=== PATIENT | female | born 2000 | race Hispanic/Latino ===

== ENCOUNTER 2024-07-23 21:51 | Inpatient (IN) | payer OTHER, SELFPAY ==
[2024-07-23] MEDS ORDERED: PROPOFOL 20 ML ONE (22:40)
[2024-07-23] MEDS ORDERED: fentaNYL 50 mcg/mL 1 mL Vial ONE (22:42)
[2024-07-23] MEDS ORDERED: Ondansetron ODT 4 MG TAB PO PRN (22:43)
[2024-07-23] MEDS ORDERED: Ondansetron PF 4 MG/2 ML Vial IVP PRN (22:43)
[2024-07-23] MEDS ORDERED: Lidocaine 2% PF 5 ML VIAL ONE (22:52)
[2024-07-23] MEDS ORDERED: Rocuronium Bromide 10 MG/ML (10ML VIAL) ONE (22:52)
[2024-07-23] MEDS ORDERED: Misoprostol 200 MCG TAB ONE (22:52)
[2024-07-23] MEDS ORDERED: Midazolam HCl 2 mg/2 ml Vial ONE (23:18)
[2024-07-23] MEDS ORDERED: Ketorolac Tromethamine 30 MG (1 mL) VIAL ONE (23:43)
[2024-07-23] MEDS ORDERED: Ondansetron PF 4 MG/2 ML Vial ONE (23:43)
[2024-07-23] MEDS ORDERED: Lidocaine 1% PF 5 ML VIAL ONE (23:43)
[2024-07-23] MEDS ORDERED: Dexamethasone 20 MG/5 ML VIAL ONE (23:43)
[2024-07-23] MEDS ORDERED: SUGAMMADEX SODIUM 200 MG/2 ML VIAL ONE (23:45)
[2024-07-24 01:39] VITALS: BMI 24.5
[2024-07-24] MEDS: Piperacillin/Tazobactam 3.375 GM in Sodium Chloride 0.9% 100 ML IVPB SCH ×2 (03:20→08:27)
[2024-07-24 04:17] LABS: #Basophils 0.01 10x3/uL (0.0-0.2); #Monocytes 0.19 10x3/uL (0.0-1.1); #Neutrophils 5.54 10x3/uL (1.5-8.4); %Basophils 0.2 % (0.0-2.0); %Lymphocytes 9.3 % (18.0-47.0); %Neutrophils 87.2 % (40.0-75.0); Hematocrit 33.3 % (34.9-44.5); Hemoglobin 10.9 g/dL (12.0-15.5); Mean Corpuscular HGB CONC 32.7 g/dL (32.0-36.0); Mean Corpuscular Hemoglobin 28.2 pg (27.0-33.0); Mean Corpuscular Volume 86.3 fL (81.6-98.3); Mean Platelet Volume 9.7 fL (7.4-10.4); Platelet Count 146 10x3/uL (150-450); RBC Distribution Width 12.6 % (11.5-14.5); Red Blood Cell (RBC) Count 3.86 10x6/uL (3.90-5.03); White Blood Cell (WBC) Count 6.4 10x3/uL (3.5-10.5)
[2024-07-24 04:22] LABS: INR-International Normal Ratio 1.2; PTT 29.1 sec (22.0-33.0); Prothrombin Time 12.5 sec (9.5-12.1)
[2024-07-24 08:04] LABS: #Basophils 0.01 10x3/uL (0.0-0.2); #Monocytes 0.12 10x3/uL (0.0-1.1); #Neutrophils 4.82 10x3/uL (1.5-8.4); %Basophils 0.2 % (0.0-2.0); %Lymphocytes 12.5 % (18.0-47.0); %Monocytes 2.1 % (0.0-10.0); %Neutrophils 84.7 % (40.0-75.0); Hematocrit 32.1 % (34.9-44.5); Hemoglobin 10.9 g/dL (12.0-15.5); Mean Corpuscular Hemoglobin 28.9 pg (27.0-33.0); Mean Corpuscular Volume 85.1 fL (81.6-98.3); Mean Platelet Volume 9.7 fL (7.4-10.4); Platelet Count 164 10x3/uL (150-450); RBC Distribution Width 12.7 % (11.5-14.5); Red Blood Cell (RBC) Count 3.77 10x6/uL (3.90-5.03); White Blood Cell (WBC) Count 5.7 10x3/uL (3.5-10.5)
[2024-07-24 08:23] LABS: D-Dimer Test 1.35 mcg/mL (0.19-0.50); INR-International Normal Ratio 1.2; PTT 29.2 sec (22.0-33.0); Prothrombin Time 12.6 sec (9.5-12.1)
[2024-07-24] MEDS: Ibuprofen 200 MG TAB PO SCH (08:27)
[2024-07-24] MEDS: metroNIDAZOLE 500 MG TAB PO SCH (08:35)
[2024-07-24] MEDS ORDERED: FLU (Fluarix Triv) TS24-25(6MOS UP)/PF 45 MCG/0.5 ML Syringe IM ONE (09:00)
[2024-07-24] MEDS: Sodium Chloride 0.9% 1,000 ML IV SCH (18:38)
[2024-07-25] MEDS: Ibuprofen 200 MG TAB PO SCH (00:22)
[2024-07-25 06:41] VITALS: TEMP 97.9
[2024-07-25 07:33] VITALS: BP 111/61
[2024-07-25] MEDS: Acetaminophen 500 MG TAB PO PRN (08:50)
[2024-07-25 10:47] LABS: Chlamydia by PCR, Vaginal Swab Not Detected (NotDetected); GC by PCR, Vaginal Swab Not Detected (NotDetected)
== END 2024-07-25 10:50 | disposition home or self-care (01) | DRG 770 ==
LOC: CSHPED 22:00
PROVIDERS: ADMIT Obstetrics & Gynecology; ATTEND Obstetrics & Gynecology
PROC: 10D17ZZ Extraction of Products of Conception, Retained, Via Natural or Artificial Opening (ICD-10-PCS; principal; 2024-07-23)
DX: O03.37 Sepsis following incomplete spontaneous abortion (principal)
CPT/HCPCS: 36415; 83605; 85025; 85049; 85300; 85362; 85384; 85610; 85730; 86850; 86900; 86901; 87070; 87205; 87480; 87491; 87510; 87591; 87660; 88305; J1100; J1885; J2250; J2405; J2543; J2704; J3010; J7030